=== PATIENT | male | born 1965 | race Caucasian/White ===

== ENCOUNTER 2019-12-18 07:15 | Day surgery (SDC) | payer OTHER ==
[~2019-12-18] VITALS: Ht 185.4 cm; Wt 111.1 kg
[2019-12-18 08:32] VITALS: BP 147/85
== END 2019-12-18 09:25 | disposition home or self-care (01) ==
LOC: GI 07:15 → OR 10:00 → GI 12:00 → OR 12:00
PROVIDERS: ATTEND Internal Medicine Gastroenterology
DX: Z12.11 Encounter for screening for malignant neoplasm of colon (principal); Z53.8 Procedure and treatment not carried out for other reasons